=== PATIENT | male | born 1965 | race Caucasian/White ===

== ENCOUNTER 2016-09-24 20:17 | Outpatient (CLI) | payer OTHER ==
--- OUTSIDE RECORDS SUMMARY | 2016-09-24 20:24 | XMS REPORT | Clinical Summary ---
Author Author Admin, VIRIDIANA Organization [facility] Address Unknown Phone Allergies, Adverse Reactions, Alerts Allergy Name Reaction Description Start Date Severity Status Provider No Known Allergies Radha Odom [facility] Conditions or Problems Problem Name Problem Code Onset Date Status Entry Date Provider Comment Standard Description Annotate LACERATION, LEFT THUMB 883.0 Resolved Heather Longo MD PhD Open wound of fingers, without mention of complication SINUSITIS, ACUTE 461.9 Resolved Shahla Mustafa APRN Acute sinusitis, unspecified SINUSITIS 473.9 Resolved Heather Longo MD PhD Unspecified sinusitis (chronic) SEBORRHEIC KERATOSIS 702.19 Active Heather Longo MD PhD Other seborrheic keratosis CLOSED DISLOCATION OF INTERPHALANGEAL FOOT 838.06 Active Heather Longo MD PhD Closed dislocation of interphalangeal (joint), foot Plantar Fasciitis 728.71 Active Eric Dietrich MD Plantar fascial fibromatosis Pharyngitis-Acute 462 Active Eric Dietrich MD Acute pharyngitis LACERATION, LEFT THUMB ICD-883.0 Inactive Heather Longo MD PhD SINUSITIS, ACUTE ICD-461.9 Inactive Shahla Mustafa RN PRIMARY CARE SINUSITIS ICD-473.9 Inactive Heather Longo MD PhD Medication List Medication Instructions Start Date Stop Date Generic Name NDC Status Provider Patient Instruction AMOXICILLIN 875 MG TABS 1 tab by mouth twice daily AMOXICILLIN 21864493177 No Longer Active Eric Dietrich MD Active FLONASE 50 MCG/ACT SUSP 1 spray each nostril am and hs FLUTICASONE PROPIONATE 42098875798 No Longer Active Eric Dietrich MD Active AMOXICILLIN 500 MG CAPS 2 po BID x 10 days AMOXICILLIN 38222098379 No Longer Active Shahla Mustafa APRN Active AZITHROMYCIN 500 MG SOLR 1 po q day AZITHROMYCIN 79862948428 No Longer Active Heather Longo MD PhD Active PREDNISONE 20 MG TAB 2 tabs daily for 3 days, 1 tab daily for 3 days, 1/2 tab daily for 2 days PREDNISONE 87104441121 No Longer Active Heather Longo MD PhD Active KEFLEX 500 MG CAP 1 po BID x 10 days CEPHALEXIN 26551591001 No Longer Active Eric Dietrich MD Active FLONASE 50 MCG/ACT SUSP 1 spray each nostril am and hs FLONASE 50 MCG/ACT SUSP 452334 FLUTICASONE PROPIONATE Inactive KEFLEX 500 MG CAP 1 po BID x 10 days KEFLEX 500 MG CAP 937720 CEPHALEXIN Inactive PREDNISONE 20 MG TAB 2 tabs daily for 3 days, 1 tab daily for 3 days, 1/2 tab daily for 2 days PREDNISONE 20 MG TAB 672783 PREDNISONE Inactive AZITHROMYCIN 500 MG SOLR 1 po q day AZITHROMYCIN 500 MG SOLR 190690 AZITHROMYCIN Inactive AMOXICILLIN 500 MG CAPS 2 po BID x 10 days AMOXICILLIN 500 MG CAPS 143407 AMOXICILLIN Inactive AMOXICILLIN 875 MG TABS 1 tab by mouth twice daily AMOXICILLIN 875 MG TABS 250399 AMOXICILLIN Inactive Vital Signs Date Name Value Unit Range Description blood pressure, diastolic - 8462-4 85 mm[Hg] BP vasquez blood pressure, systolic - 8480-6 141 mm[Hg] BP sys height E&M - 8302-2 74 [in_us] Bdy height pulse rate E&M - 8867-4 74 /min Heart rate temperature E&M 97.7 [degF] Body temperature weight E&M - 3141-9 260.13 [lb_av] Weight Measured blood pressure, diastolic - 8462-4 87 mm[Hg] BP vasquez blood pressure, systolic - 8480-6 144 mm[Hg] BP sys height E&M - 8302-2 74 [in_us] Bdy height pulse rate E&M - 8867-4 72 /min Heart rate temperature E&M 97.4 [degF] Body temperature weight E&M - 3141-9 250 [lb_av] Weight Measured Encounters Code Encounter Date Provider Facility CPT-08242 Level 3 Est. Patient 16:39:09 CDT Eric Dietrich MD [facility] CPT-10331 Level 3 Est. Patient 16:16:14 CDT Heather Longo MD PhD [facility] CPT-35051 Level 2 Est. Patient 15:15:42 CDT Heather Longo MD PhD [facility] CPT-66976 Level 3 Est. 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 Patient 11:49:22 CDT Heather Longo MD PhD [facility] CPT-09372 Level 3 Est. Patient 14:11:39 CDT Eric Dietrich MD [facility] Procedures Code Procedure Name Date Entry Date Standard Description CPT-J1040 Depo Medrol 80 mg (Methyl Prednisolone Acetate) 17:56: 58 CDT CPT-Cryo Cryotherapy 15:15:42 CDT CPT-J1040 Depo Medrol 80 mg (Methyl Prednisolone Acetate) 16:12: 22 CDT CPT-18093 Abx/Therapy Injection 16:12:22 CDT
== END 2016-09-25 05:50 | disposition home or self-care (01) ==
LOC: SLEEP 20:17
PROVIDERS: ATTEND Nurse Practitioner
DX: G47.10 Hypersomnia, unspecified (principal); R06.83 Snoring; G47.30 Sleep apnea, unspecified
CPT/HCPCS: 95811